=== PATIENT | female | born 1975 | race American Indian/Alaskan Native ===

== ENCOUNTER 2022-01-25 01:00 | Emergency (ER) | payer MEDICAID, OTHER ==
[~2022-01-25 01:00] MED LIST: Naloxone 0.4 MG/ML SDV ONE
[2022-01-25] MEDS ORDERED: Sodium Chloride 0.9% 10 ML Syringe FLUSH PRN (01:04)
[2022-01-25] MEDS ORDERED: Morphine 4 MG/ML Syringe IVPUSH PRN (01:04)
[2022-01-25] MEDS ORDERED: Aspirin 81 MG Tab.Chew PO ONE (01:04)
[2022-01-25] MEDS ORDERED: Naloxone 0.4 MG/ML SDV IVPUSH ONE (01:06)
[2022-01-25] MEDS ORDERED: Lactated Ringers 1,000 ML IV SCH (01:15)
[2022-01-25] MEDS: Nitroglycerin 0.4 MG Tab.SL SL PRN ×2 (01:18→01:45)
[2022-01-25 01:47] LABS: TROPONIN I HIGH SENSITIVITY 56.9 pg/mL (<=60.3)
[2022-01-25] MEDS ORDERED: Ketorolac 30 MG/ML SDV IVPUSH ONE (03:14)
[2022-01-25] MEDS ORDERED: LORazepam 2 MG/ML SDV IVPUSH ONE (04:15)
== END 2022-01-25 04:26 | disposition home or self-care (01) ==
LOC: JP.ED 01:00
DX: R55 Syncope and collapse (principal); I25.10 Atherosclerotic heart disease of native coronary artery without angina pectoris; I25.2 Old myocardial infarction; Z79.899 Other long term (current) drug therapy; Z79.82 Long term (current) use of aspirin
CPT/HCPCS: 36415; 71045; 80053; 80305; 83605; 83690; 84484; 85025; 85379; 93005; 96374; 96375; 99285; A9270; J1885; J2060; J2270; J2310; J3490; J7120

== ENCOUNTER 2022-02-07 12:51 | Emergency (ER) | payer OTHER ==
[2022-02-07] MEDS ORDERED: Sodium Chloride 0.9% 10 ML Syringe FLUSH PRN (13:37)
[2022-02-07 13:49] LABS: TROPONIN I HIGH SENSITIVITY 18.6 pg/mL (<=60.3)
[2022-02-07] MEDS: Morphine 4 MG/ML Syringe IVPUSH PRN ×2 (14:34→15:32)
[2022-02-07] MEDS ORDERED: LORazepam 2 MG/ML SDV IVPUSH ONE (16:35)
[2022-02-07] MEDS ORDERED: Sodium Chloride 0.9% 75 ML IV SCH (16:45)
[2022-02-07] MEDS ORDERED: Iopamidol 755 Mg/ML 100 ML Bottle IV SCH (16:45)
== END 2022-02-07 18:13 ==
LOC: JP.ED 12:51
DX: R07.89 Other chest pain (principal); F17.210 Nicotine dependence, cigarettes, uncomplicated; I10 Essential (primary) hypertension; I25.10 Atherosclerotic heart disease of native coronary artery without angina pectoris; I25.2 Old myocardial infarction; F41.9 Anxiety disorder, unspecified; E78.00 Pure hypercholesterolemia, unspecified; Z79.899 Other long term (current) drug therapy; Z79.82 Long term (current) use of aspirin
CPT/HCPCS: 36415; 71045; 71045-26; 71275; 80053; 84484; 85025; 93005; 93010; 96374; 96375; 96376; 99282; 99285-25; J2060; J2270; J3490; Q9967

== ENCOUNTER 2022-07-25 01:41 | Emergency (ER) | payer MEDICAID, OTHER ==
[2022-07-25] MEDS ORDERED: LORazepam 2 MG/ML SDV IM ONE (02:06)
[2022-07-25] MEDS ORDERED: Ketorolac 30 MG/ML SDV IM ONE (02:06)
== END 2022-07-25 02:33 | disposition home or self-care (01) ==
LOC: JP.ED 01:41
DX: K04.7 Periapical abscess without sinus (principal); I25.119 Atherosclerotic heart disease of native coronary artery with unspecified angina pectoris; I10 Essential (primary) hypertension; I25.2 Old myocardial infarction; Z72.0 Tobacco use
CPT/HCPCS: 96372; 99282; J1885; J2060